=== PATIENT | male | born 1955 | race Caucasian/White ===

== ENCOUNTER → 2019-10-19 10:48 | Outpatient (CLI) | payer OTHER, SELFPAY ==
[2019-10-19 13:39] LABS: AST(SGOT) 20 U/L (15-37); Alanine Aminotransfer ALT/SGPT 24 U/L (16-61); Albumin, Serum 3.9 g/dL (3.2-5.0); Alkaline Phosphatase 72 U/L (45-117); Bilirubin, Direct 0.19 mg/dL (0.00-0.30); Cholesterol 130 mg/dL (200); Globulin 3.5 g/dL (2.2-4.2); High Density Lipoprotein 47 mg/dL; Protein, Total 7.4 g/dL (6.4-8.2); Triglycerides 93 mg/dL; Very Low Density Lipoprotein 19 mg/dL (5-40)
[2019-10-20 14:49] LABS: SAR-COV-2 IGG ANTIBODY Negative (Negative); SAR-COV-2 IGM ANTIBODY Negative (Negative)
== END ==
PROVIDERS: PCP Family Medicine; Referring Provider Psychiatry & Neurology Psychiatry; Visit Provider Psychiatry & Neurology Psychiatry
DX: J06.9 Acute upper respiratory infection, unspecified (principal)
CPT/HCPCS: 36415; 80061; 80076; 86769; G2023

== ENCOUNTER 2021-05-25 12:15 | Outpatient (CLI) | payer MEDICARE, OTHER, SELFPAY ==
[2021-05-25 12:30] VITALS: BP 134/86; PULSE 79; RESP 16; TEMP 36.7; O2SAT 99; BMI 24.3
[2021-05-25] MEDS: 0.9% Saline Lock 10 ML Syringe IV (12:36)
[2021-05-25 12:56] VITALS: BP 126/79; PULSE 75; RESP 16; TEMP 37; O2SAT 99
[2021-05-25 13:56] VITALS: BP 132/84; PULSE 97; RESP 16; TEMP 36.8; O2SAT 97
== END 2021-05-25 23:59 | disposition home or self-care (01) ==
LOC: MS3OUT 12:15 → MS3 12:16
PROVIDERS: Referring Provider Nurse Practitioner Adult Health; Visit Provider Nurse Practitioner Adult Health
DX: Z23 Encounter for immunization (principal); U07.1 COVID-19
CPT/HCPCS: J7050; M0243; A4216; Q0244

== ENCOUNTER 2021-07-28 13:00 | Outpatient (RCR) | payer MEDICARE, OTHER, SELFPAY ==
--- NOTE | 2021-06-20 14:03 | HP.PTEVAL_ITS ---
Patient's Visit Information LV PADILLA is a 66 year old M referred to Physical Therapy by Dr. Dwaine Allison MD with a diagnosis of L shoulder impingement.. Date of Evaluation: 06/20/21 Physical Therapist: Robe Connor, DPT, OCS, CSCS - Visit Plan Frequency: 2-3x /Week Duration: 4 Weeks Plan: 2-3x/wee for 2-4 weeks around business trip in Mid June. Please do DTR /STM to scarring and tenderness at L deltoid insertion on humerus laterally. Also can do US to same area and supraspinatus for impingement. strengthening RC painfree and postural muscles - Subjective L shoulder is sore. been that way since pnumovax vaccine in November and has been sore ever since. It did not go away. Has been mostly constant since then and worse with reaching up, reaching back and putting on coat. Pain is to 4/10 and comfortable at rest. Pain is in L deltoid area. Sleep is Ok, can wake him up if he rolls on that side sometimes. 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 Only hurts with use. Drying back at after shower with L arm behind can hurt. IR can hurt. Activities are pretty normal. lifts weights with dumbbells at home has lessended weight due to pain, cannot do more than 7 pushups anymore. No neck problems, no numbness or tingling. - Pain L deltoid lat Pain Intensity (Out of 10): 0 Pain Intensity Range: 0, 4 - Objective Posture is slightly forward head and anterior scap but not bad overall. Tender to palpation in two areas...left deltoid insertion on humerus mod, and supraspinatus min on L. + empty can, + HK and + neer all on L. - drop arm, - ext rotation lag test. Full aROM B shouldrs but L end range IR, Er and flexion/abd are 4/10 pain on L, not R. reflexes 1/3 B biceps and triceps. Sensation WNL to pt report. strength is 4/5 B shoulder flexiona dn abduction and ext rotation and IR, slight pain L IR/ER. bi and tri are 5/5 B, wrist adn thumb ext 4=/5 B no pain.. - Balance/Special Test Scores Quick DASH Score: 15.9075 - Goals Goal 1:: Don coat without noticing pain in L arm. Goal Time Frame: 2-4 Weeks Goal 2:: Pt feel 75% better overall and I in management. Goal Time Frame: 2-4 Weeks Goal 3:: Reach for charts without l arm pain. Goal Time Frame: 2-4 Weeks Goal 4:: Sleep without waking. Goal Time Frame: 2-4 Weeks - Rehabilitation Potential Physical Therapy Diagnosis: l shoulder impingement vs L deltoid scar tissue. Rehabilitation Potential: Fair - Anticipated Interventions Patient/Client Instruction: Educate patient on: Condition, Plan of Care For the Purpose of:: To decrease pain, To improve muscle performance and motor function, To increase tolerance to activity/condition/position, To improve ability of physical actions for home/community/work/leisure Therapeutic Exercise to Include: Strength training, Postural training, Flexibilty training, Passive ROM, Active ROM For the Purpose of:: To decrease pain, To increase ROM, To improve muscle performance and motor function, To increase tolerance to activity/condition/position, To improve ability of physical actions for home/community/work/leisure Manual Therapy Techniques to Include: Massage, Scar massage, Soft tissue mobilization For the Purpose of:: To increase tolerance to activity/condition/position, To improve ability of physical actions for home/community/work/leisure, To improve gait and locomotor functions Ultrasound (thermal/non thermal): Yes For the Purpose of:: To decrease pain, To decrease swelling/inflammation Thank you for the opportunity to evaluate your patient. For Medicare and Medicare HMO plans, please review the plan of care and approve it. It will need to be FAXED BACK to us at [phone] for Medicare purposes. For Medicare only, by signing this I certify the plan of care. Please let me know if there are questions or concerns regarding this plan of care. Physician Signature: Date:
--- NOTE | 2021-07-28 13:18 | HP.PTREVAL ---
Dr. Dwaine Allison MD, It has been my pleasure to treat LV PADILLA over the last 8 visits for L shoulder impingement.. Please see the progress note below for an update on the physical therapy plan of care! Subjective: Pains not better overall. Still existed with LLA abd and IR end range scratching back. Activities are normal. it is a pain at night sometimes. Shoulder hurts for a few minutes with wrong movements at night. Sleeping OK otherwise and sometimes can ache in am. No problems with exercises at home, motion is improving. Objective/Function: Full aROM L UE vs R except IR which is painful at end range behind back and at 55 degrees IR at 90 abd vs 80 on R. Also painful with OP to IR. This motion is improving slowly with his HEP but pain persists and is not overall improving. - ext rotation lag test. - drop arm test. Slight painful arc with abduction L. - labral test Plan Plan: Patient does not feel he needs to f/u with doctor. Recommended trying continue strength and stretching. Will call doctor if pain increases and will get back into therapy by end of July if ROM decreases, otherwise will d/c in August if he does not call. Balance/Gait/Functional tests - Balance/Special Test Scores Quick DASH Score: 11.3625 Goals Goal 1:: Don coat without noticing pain in L arm. Goal Time Frame: 2-4 Weeks Goal Progress: Progressing Goal 2:: Pt feel 75% better overall and I in management. Goal Time Frame: 2-4 Weeks Goal Progress: 50% stagnant Goal 3:: Reach for charts without l arm pain. Goal Time Frame: 2-4 Weeks Goal Progress: short arms it. Goal 4:: Sleep without waking. Goal Time Frame: 2-4 Weeks Goal Progress: Goal Met Anticipated Interventions Patient/Client Instruction: Educate patient on: Condition, Plan of Care For the Purpose of:: To decrease pain, To improve muscle performance and motor function, To increase tolerance to activity/condition/position, To improve ability of physical actions for home/community/work/leisure Therapeutic Exercise to Include: Strength training, Postural training, Flexibilty training, Passive ROM, Active ROM For the Purpose of:: To decrease pain, To increase ROM, To improve muscle performance and motor function, To increase tolerance to activity/condition/position, To improve ability of physical actions for home/community/work/leisure Manual Therapy Techniques to Include: Massage, Scar massage, Soft tissue mobilization For the Purpose of:: To increase tolerance to activity/condition/position, To improve ability of physical actions for home/community/work/leisure, To improve gait and locomotor functions Ultrasound (thermal/non thermal): Yes For the Purpose of:: To decrease pain, To decrease swelling/inflammation Please do not hesitate to contact me at [phone] by phone or if you have questions or concerns regarding this new plan of care! Sincerely, Robe Connor, DPT, OCS, CSCS
--- NOTE | 2021-09-22 08:19 | HP.PTDCSUM ---
It has been my pleasure to treat LV PADILLA referred by Dr. Dwaine Allisno MD, with the diagnosis of L shoulder impingement. for a total of 8 visit(s). Discharge Date: Please see the following information for a summary of their discharge status. Subjective: Pains not better overall. Still existed with LLA abd and IR end range scratching back. Activities are normal. it is a pain at night sometimes. Shoulder hurts for a few minutes with wrong movements at night. Sleeping OK otherwise and sometimes can ache in am. No problems with exercises at home, motion is improving. L deltoid lat Pain Intensity (Out of 10): 3 % Improvement: 50 Objective/Function: Full aROM L UE vs R except IR which is painful at end range behind back and at 55 degrees IR at 90 abd vs 80 on R. Also painful with OP to IR. This motion is improving slowly with his HEP but pain persists and is not overall improving. - ext rotation lag test. - drop arm test. Slight painful arc with abduction L. - labral test Goal 1:: Don coat without noticing pain in L arm. Goal Progress: Progressing Goal 2:: Pt feel 75% better overall and I in management. Goal Progress: 50% stagnant Goal 3:: Reach for charts without l arm pain. Goal Progress: short arms it. Goal 4:: Sleep without waking. Goal Progress: Goal Met Plan: Patient does not feel he needs to f/u with doctor. Recommended trying continue strength and stretching. Will call doctor if pain increases and will get back into therapy by end of July if ROM decreases, otherwise will d/c in August if he does not call. If there are questions or concerns regarding this patient's physical therapy, please feel free to call me at [phone]. Thank you for the referral of this patient. Sincerely, Robe Connor, DPT, OCS, CSCS Balance/Gait/Functional tests - Balance/Special Test Scores Quick DASH Score: 11.3629
== END 2021-07-28 19:00 | disposition home or self-care (01) ==
LOC: PT 13:00
PROVIDERS: PCP Internal Medicine; Referring Provider Internal Medicine; Visit Provider Internal Medicine
DX: M75.42 Impingement syndrome of left shoulder (principal)
CPT/HCPCS: 97035; 97110; 97140; 97161; 97164; 97530

== ENCOUNTER → 2022-09-11 | Outpatient (CLI) | payer MEDICARE, OTHER, SELFPAY ==
--- NOTE | 2022-09-11 07:20 | ECHOD_ITS ---
Reason For Study: ASHD Procedure This was a 2D Doppler, Color Flow transthoracic echocardiogram. Exam performed in department. Left Ventricle Normal LV size. Left ventricular systolic function is normal. The estimated ejection fraction is 65 %. Normal diastology for age. No regional wall motion abnormalities noted. Right Ventricle Normal RV size. Normal systolic function. Atria Normal left atrium. Normal right atrium. Mitral Valve Normal mitral valve. Tricuspid Valve Normal tricuspid valve. Unable to estimate RV systolic pressure due to inadequate jet, pulmonary artery pressure probably normal. Aortic Valve Trisinus/trileaflet aortic valve. Pulmonic Valve Normal pulmonic valve. Great Vessels Normal aortic root. The pulmonary artery is normal size. Normal inferior vena cava. Pericardium/Pleural No pericardial effusion. MMode/2D Measurements & Calculations LVIDd: 4.4 cm IVSd: 0.98 cm Ao root diam: 3.4 cm LVIDs: 3.0 cm LVPWd: 0.83 cm RVDd: 3.7 cm FS: 33.3 % LAV(MOD-bp): 39.1 ml LVAd ap4: 33.2 cm2 SV(MOD-sp4): 56.6 ml LAV(MOD-bp) Indexed: 18.4 ml/m2 LVLd ap4: 9.0 cm LAV(MOD-sp2): 30.7 ml EDV(MOD-sp4): 101.5 ml LAV(MOD-sp4): 46.4 ml EDV(sp4-el): 104.5 ml LVAs ap4: 18.7 cm2 LVLs ap4: 6.8 cm ESV(MOD-sp4): 44.9 ml ESV(sp4-el): 43.8 ml EF(MOD-sp4): 55.8 % EF(sp4-el): 58.1 % SV(sp4-el): 60.7 ml LA A4 area: 18.6 cm2 RA A4 area: 16.6 cm2 Time Measurements MV dec time: 0.20 sec Doppler Measurements & Calculations MV E max johnnie: 61.8 cm/sec Lat Peak E' Johnnie: 12.4 cm/sec Med Peak E' Johnnie: 8.3 cm/sec MV A max johnnie: 49.4 cm/sec E/E' lat: 5.0 E/E' med: 7.4 MV E/A: 1.3 MV V2 max: 68.3 cm/sec Ao V2 max: 114.5 cm/sec MV max P.9 mmHg MV dec slope: 302.9 cm/sec2 Ao max P.3 mmHg MV V2 mean: 38.4 cm/sec Ao V2 mean: 81.1 cm/sec MV mean P.72 mmHg Ao mean P.0 mmHg MV V2 VTI: 24.5 cm Ao V2 VTI: 27.3 cm AV (velocity ratio): 0.79 LV V1 max: 96.9 cm/sec MR max johnnie: 496.3 cm/sec PA V2 max: 92.7 cm/sec LV V1 max P.8 mmHg MR max P.5 mmHg PA V2 mean: 68.9 cm/sec LV V1 mean P.1 mmHg LV V1 mean: 67.8 cm/sec LV V1 VTI: 21.6 cm ECHO/Echo Complete Interpretation Summary Normal LV size. Left ventricular systolic function is normal. The estimated ejection fraction is 65 %. Structurally normal valves. Ordering Physician: Stefan Rosa Referring Physician: Stefan Rosa Performed By: Evelyn Drake RCS
--- NOTE | 2022-09-12 18:11 | STRESSREP_ITS ---
Stress Test Report Exercise myocardial perfusion stress test. 67-year-old man with coronary artery risk factors Stress protocol: Resting EKG demonstrates sinus rhythm with a rate of 59 bpm resting blood pressure is 112/74 mmHg. The patient exercised according to the regular Gonzalez protocol for a total duration of 9 minutes attaining a maximum heart rate of 160 bpm which was 104% of maximum predicted heart rate; the maximum workload was 10.1 metabolic equivalents. At rest there were no ST or T wave changes noted to suggest ischemia and at peak exercise upsloping ST changes only were noted which did not meet the criteria for ischemia. No clinical angina was noted the test was terminated due to the target heart rate being achieved/fatigue. The peak bl ood pressure was 144/70 mmHg. Rate-pressure product was 23,300. Myocardial perfusion protocol. 10.0 mCi of technetium 99m sestamibi was injected at rest. The patient exercised according to regular Gonzalez protocol for total duration of 9 minutes and at peak exercise 33.4 mCi of technetium 99m sestamibi was injected stress images were obtained stress and rest images were reconstructed in comparing the short axis vertical long and horizontal long axis. Gated images were also obtained. Perfusion SPECT analysis: Review of the stress images demonstrate normal uptake of tracer noted in all areas of the myocardium. The resting images similarly demonstrate normal uptake of tracer noted in all areas of the myocardium. No areas of reversibility are noted to suggest ischemia no previous infarct was noted. Gated SPECT analysis: The gated ejection fraction is 64%. Conclusion: Normal exercise myocardial perfusion stress test at a high workload Preserved ejection fraction.
== END | disposition home or self-care (01) ==
PROVIDERS: PCP Internal Medicine; Referring Provider Internal Medicine Cardiovascular Disease; Visit Provider Internal Medicine Cardiovascular Disease
DX: I25.10 Atherosclerotic heart disease of native coronary artery without angina pectoris (principal)
CPT/HCPCS: 78452; 93017; 93306; A9500; A4216

== ENCOUNTER → 2022-12-10 | Outpatient (CLI) | payer MEDICARE, OTHER, SELFPAY ==
[2022-12-10 17:48] LABS: Absolute Lymphocyte Count 1.56 X10^3/uL (0.83-4.51); Absolute Neutrophil Count 8.4 X10^3/uL (2.0-7.7); Basophil# 0.02 X10^3/uL; Basophil% 0.2 % (0-1); Eosinophil# 0.03 X10^3/uL; Eosinophils% 0.3 % (0-5); Hematocrit 43.5 % (40-54); Lymphocyte # 1.56 X10^3/ul (0.83-4.51); Lymphocyte % 13.4 % (19-41); Mean Corp Hgb Conc 32.2 g/dL (32-36); Mean Corpuscular Hgb 29.6 pg (27.0-32.0); Mean Platelet Vol. 10.8 fl (6.2-12.0); Monocyte# 1.11 X10^3/uL; Monocyte% 9.6 % (0-10); NRBC Flagged by Analyzer 0 % (0-5); Neutrophil # 8.43 X10^3/uL (2.7-7.7); Neutrophil % 72.5 % (47-70); Platelet Count 177 K/mm3 (150-450); RBC Distribution Width CV 12.8 % (11.6-14.6); Red Blood Count 4.73 M/mm3 (4.6-6.2); White Blood Count 11.6 K/mm3 (4.4-11.0)
== END | disposition home or self-care (01) ==
LOC: LAB 17:28
PROVIDERS: PCP Internal Medicine; Referring Provider Internal Medicine Pulmonary Disease; Visit Provider Internal Medicine Pulmonary Disease
DX: R05.9 Cough, unspecified (principal); R06.00 Dyspnea, unspecified
CPT/HCPCS: 36415; 85025

== ENCOUNTER → 2023-11-15 | Outpatient (CLI) | payer MEDICARE, OTHER, SELFPAY ==
[2023-11-15 15:14] LABS: Absolute Lymphocyte Count 1.92 X10^3/uL (0.83-4.51); Basophil# 0.02 X10^3/uL; Basophil% 0.3 % (0-1); Eosinophil# 0.02 X10^3/uL; Eosinophils% 0.3 % (0-5); Hematocrit 42.5 % (40-54); Hemoglobin 14.1 g/dL (13.0-16.5); Lymphocyte # 1.92 X10^3/ul (0.83-4.51); Lymphocyte % 32.9 % (19-41); Mean Corp Hgb Conc 33.2 g/dL (32-36); Mean Corpuscular Hgb 29.6 pg (27.0-32.0); Mean Corpuscular Volume 89.3 fL (80-94); Mean Platelet Vol. 12.4 fl (6.2-12.0); Monocyte# 0.85 X10^3/uL; Monocyte% 14.6 % (0-10); NRBC Flagged by Analyzer 0 % (0-5); Neutrophil # 2.98 X10^3/uL (2.7-7.7); Platelet Count 168 K/mm3 (150-450); RBC Distribution Width CV 12.4 % (11.6-14.6); RBC Distribution Width SD 40.5 fl (35.1-43.9); Red Blood Count 4.76 M/mm3 (4.6-6.2); White Blood Count 5.8 K/mm3 (4.4-11.0)
[2023-11-15 15:54] LABS: AST(SGOT) 20 U/L (15-37); Alanine Aminotransfer ALT/SGPT 19 U/L (16-61); Albumin, Serum 3.8 g/dL (3.2-5.0); Alkaline Phosphatase 63 U/L (45-117); Anion Gap 6 (5-15); BUN 18 mg/dL (7-18); BUN/Creat Ratio 20.9 RATIO (10-20); Bilirubin, Direct 0.25 mg/dL (0.00-0.30); Calcium,Total 8.9 mg/dL (8.5-10.1); Chloride 106 mmol/L (98-107); Cholesterol 144 mg/dL (200); Creatinine, Serum 0.86 mg/dL (0.70-1.30); EST Glomerular Filtration Rate 94 mL/min (>60); Est Glom Filt Rate - Afr Amer 113 mL/min (>60); Globulin 3.7 g/dL (2.2-4.2); Glucose 96 mg/dL (74-106); High Density Lipoprotein 57 mg/dL; Magnesium 2.4 mg/dL (1.6-2.6); Potassium 4.3 mmol/L (3.5-5.1); Protein, Total 7.5 g/dL (6.4-8.2); Sodium Level 136 mmol/L (136-145); Thyroid Stim Hormone (TSH) 1.79 uIU/mL (0.358-3.74); Triglycerides 61 mg/dL; Very Low Density Lipoprotein 12 mg/dL (5-40)
== END | disposition home or self-care (01) ==
LOC: LAB 14:38
PROVIDERS: PCP Internal Medicine; Referring Provider Internal Medicine Cardiovascular Disease; Visit Provider Internal Medicine Cardiovascular Disease
DX: I25.10 Atherosclerotic heart disease of native coronary artery without angina pectoris (principal); E78.5 Hyperlipidemia, unspecified
CPT/HCPCS: 36415; 80048; 80061; 80076; 83735; 84443; 85025